=== PATIENT | male | born 1970 | race Caucasian/White ===

== ENCOUNTER 2025-07-02 17:04 | Inpatient (IN) | payer OTHER, SELFPAY ==
--- OUTSIDE RECORDS SUMMARY | 2024-06-16 17:30 | XMS_ITS ---
Author Organization [facility] Address [address] [id number] Care Team Providers Care Pump Stitcher Name Role Phone Yovani Nelson Primary Care Provider Unavailabl Jalen Mccloud Unavailable [phone] Migration, Provider Unavailable Unavailable REASON FOR VISIT Multum To Medispan Conversion Encounter Medications Medication SIG (Take, Route, Frequency, Duration) Notes Start Date End Date Status Disulfiram *Please review a nd pick correct strength-formulation from Medispan options. If intended option is not shown, discontinue and re-order from Quick Search* Unknown Sulfamethoxazole *Please review and pick correct strength-formulation from Medispan options. If intended option is not shown, discontinue and re-order from Quick Search* Unknown Encounters Encounter Location Date Provider Diagnosis [facility] [address] [id number] 06/16/2024 Provider Migration Plan Of Treatment No Information Progress Notes * Alec MAYADOB:[birth year] (54 yo M)Acc No.[id number]:06/16/2024 Patient: Alec Nichols Provider: :1970 A ge:53 Y S ex:Male Date:06/16/2024 Address:[address] [facility], [phone] Pcp:Yovani Nelson Subjective: * Chief Complaints: * M ultum To Medispan Conversion Encounter * Medications: U nknownSulfamethoxazole , Notes to Pharmacist: *Please review and pick correct strength-formulation from Medispan options. If intended option is not shown, discontinue and re-order from Quick Search*Disulfiram , Notes to Pharmacist: *Please review and pick correct strength-formulation from Medispan options. If intended option is not shown, discontinue and re-order from Quick Search*Unknown Sulfamethoxazole , Notes to Pharmacist: *Please review and pick correct strength-formulation from Medispan options. If intended option is not shown, discontinue and re-order from Quick Search*Unknown Disulfiram , Notes to Pharmacist: *Please review and pick correct strength-formulation from Medispan options. If intended option is not shown, discontinue and re-order from Quick Search* * Electronic signature of Prov ider Migration on 07/02/2025 at 06:45 PM EDT Sign off status: Pending * Provider: Date: 0 06/16/2024 Generated for Sunday barron/Nicole/Crispinitting on: 07/02/2025 06:45 PM EDT
--- OUTSIDE RECORDS SUMMARY | 2024-07-05 09:00 | XMS_ITS ---
Author Organization [facility], Address [address] [facility] [address] [place] [address] Care Team Providers Care Racecar Driver Name Role Phone Yovani Lee Primary Care Provider Mena Gloria Unavailable [phone] Yovani Lee Unavailable Unavailable ALLERGIES Allergen (clinical drug ingredient) Drug/Non Drug Allergy documented on EMR Reaction Allergy Type Onset Date Status Lobster, shrimp, crane helper b (uncoded) Unknown Allergy Active REASON FOR VISIT RIGHT SHOULDER PAIN SOCIAL HISTORY Tobacco Use: Social History Observation Description Date Details (start date - stop date) Former Smoker NA - NA Sex Assigned At : Social History Observation Description Sex Assigned At Unknown Smoking Question Answer Notes Do you smoke? Former smoker Additional Findings: Tobacco Non-User Current no n-smoker PROBLEMS Problem Type ICD Code Onset Dates Problem Status W/U Status Risk SNOMED Code Notes Problem Rotator cuff syndrome of right shoulder (M75.101) Active confirmed 263285050586383 VITAL SIGNS Height 5 ft 7 in in 07/05/2024 Weight 180 lbs 07/05/2024 BMI 28.19 kg/m2 07/05/2024 Encounters Encounter Location Date Provider Diagnosis [facility] [address] [place] [phone] 07/05/2024 Mena Stein Rotator cuff syndrome of right shoulder M75.101 ASSESSMENTS Encounter Date Diagnosis Assessment Notes Treatment Notes Treatment Clinical Notes Section Notes 07/05/2024 Rotator cuff syndrome of right shoulder (ICD-10 - M75.101) 07/05/2024 Other Patient Educated with: Anatomy of theShoulder.pd f (AnatomyoftheS houlder.pdf) Patient Educated with: Tennis Elbow.pdf (Tennis Elbow.pdf) Patient Educated with: Anatomy of theShoulder.pd f (AnatomyoftheS houlder.pdf) Patient Educated with: Tennis Elbow.pdf (Tennis Elbow.pdf) PLAN OF TREATMENT Treatment Notes Assessment Notes Other Patient Educated wit h: Anatomy of theShoulder.pdf (AnatomyoftheShoulder.pdf) Patient Educated with: Tennis Elbow.pdf (Tennis Elbow.pdf) Patient Educated with: Anatomy of theShoulder.pdf (AnatomyoftheShoulder.pdf) Patient Educated with: Tennis Elbow.pdf (Tennis Elbow.pdf) Next Appt Details Follow Up: schedule R should er MRI, Reason: Progress Notes * Examination Category Sub-Category Detail Notes Category Not es GENERAL EXAMINATION General appearance: Within normal limits Skin: Exam of upper extrem ities and lower extremeties are within normal limits Neurologic: grossly intact Orientation: Alert and Oriented x 3 (Time, Place, Person) Mood: Within normal limits Gait: Without significant limitation Vascular: Exam is grossly norm al History and Physical Notes * HPI (History of Present Illness) Category Sub-Category Detail Notes Category Not es New Problem DIAGNOSIS: Right shoulder rotator cuff syndrome. HISTORY: He comes in with about 2 months of severely increasing shoulder pain. He has had pain in the past. He underwent left shoulder rotator cuff repair and has been doing rotator cuff strengthening exercises for his right shoulder. He has also been taking anti-inflammatory medications. He has pain in the shoulder and arm. He has pain with certain shoulder motions. More recently he has developed a little bit of right scapular pain. He can have some pain which radiates down the right upper extremity into the ulnar aspect of the hand. It is associated with some numbness and tingling. He denies neck pain or stiffness. He does not give a history of an injury. PHYSICAL EXAMINATION: He has full motion of the cervical spine without pain. He has painful elevation of the right shoulder. He has pain and weakness with resisted supraspinatus strength testing. He has full shoulder rotation but pain with impingement testing. He has a negative Tinel at the cubital and carpal tunnel. He has symmetric reflexes in the upper extremities and no weakness or atrophy. DATA: X-rays of the right shoulder are unremarkable. ASSESSMENT AND PLAN: He has right shoulder pain. His exam reveals impingement and is suspicious for a rotator cuff tear. He has been doing physical therapy exercises given to him following left shoulder rotator cuff repair. He has been taking anti-inflammatory medications and has modified his activities. His symptoms are progressive. I have recommended MRI of the shoulder to evaluate the severity of his impingement and to rule out rotator cuff tear. THE PATIENT AND I DISCUSSED THEIR CONDITION COMPLETELY. TREATMENT OPTIONS AND ASSOCIATED RISKS AND BENEFITS WERE REVIEWED. ALL QUESTIONS WERE ANSWERED AND EXPLAINED TO THEIR SATISFACTION. DICTATED BY MENA STEIN M.D. DANIEL/tia
--- OUTSIDE RECORDS SUMMARY | 2024-07-05 10:50 | XMS_ITS ---
Author Organization [facility] Address [address] [address] Care Team Providers Care Minister Assistant Name Role Phone Yovani Lee Primary Care Provider Doroteo Gloria [phone] Yovani Lee Unavailable Unavailable REASON FOR VISIT MRI RIGHT SHOULDER Encounters Encounter Location Date Provider Diagnosis [facility] [address] [place] [address] [address] [place] [address] 07/05/2024 Doroteo Estrada PLAN OF TREATMENT No Information
[2025-07-02 17:15] VITALS: BP 143/63; PULSE 64; RESP 15; TEMP 37.1; O2SAT 99
[2025-07-02 17:40] VITALS: BMI 27.4
--- OUTSIDE RECORDS SUMMARY | 2025-07-02 18:45 | XMS_ITS | Clinical Summary ---
Author Organization [facility] Address [address] [place] [address] Care Team Providers Care Web Assistant Name Role Phone None Primary Care Provider Unavailabl e Allergies Active Allergy Reactions Criticality Noted Date Comments Crab Other (See Comments) High 06/11/2025 Throat tightness and GI upset. Lobster Other (See Comments) High 06/11/2025 Throat tightness and GI upset. Shrimp Other (See Comments) High 06/11/2025 Throat tightness and GI upset. 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 06/16/2025 EtOH dependence 06/12/2025 Shellfish allergy 06/12/2025 Alcohol use disorder 06/12/2025 Encounters Date Type Department Care Team Description 06/20/2025 Tel Enc [facility] [address] [place] [address] 2nd Floor - [phone] [place] [address] Radha Koo 06/12/2025 Plan of Care Documentation [facility] [address] [place] [address] 06/11/2025 6:29 PM EDT - 06/16/2025 5:47 PM EDT Hospital Encounter [facility] [address] [place] [address] Dominic Dukes MD Poluha-O'Neil, Joanna, MD Alcohol use disorder (Primary Dx); Alcohol dependence with alcohol-induced mood disorder (HCC); Shellfish allergy Discharge Disposition: Home w/ Health Services 06/11/2025 Travel from Last 3 Months Family History Medical History Relation Comments Hypertension Father Leukemia Mother Heart Disease FamHxNeg Relation Status Comments Father Mother Social History Tobacco Use Types Packs/Day Years Used Date Smoking Tobacco: Never Smokeless Tobacco: Never Tobacco Cessation:Counseling Given: No Comments:Not applicable Alcohol Use Standard Drinks/Week Comments Yes 0 (1 standard drink = 0.6 oz pur e alcohol) Sex and Gender Information Value Date Recorded Sex Assigned at Not on file Legal Sex Male 1:41 PM EDT Gender Identity Male 06/12/2025 10:40 AM EDT Sexual Orientation Straight 06/12/2025 10 :40 AM EDT Last Filed Vital Signs Vital Sign Reading Time Taken Comments Blood Pressure 123/79 06/16/2025 7:18 AM EDT Pulse 65 06/16/2025 7:18 AM EDT Temperature 36.1 C (97 F) 06/16/2025 7:18 AM EDT Respiratory Rate 18 06/14/2025 8:29 AM EDT Oxygen Saturation 100% 06/16/2025 7:18 AM EDT Inhaled Oxygen Concentration - - Weight 77.1 kg (170 lb) 06/11/2025 5:00 PM EDT Height 167.6 cm (5' 6 ) 06/11/2025 5:00 PM EDT Body Mass Index 27.44 06/11/2025 5:00 PM EDT Plan of Treatment Not on file Procedures Procedure Name Priority Date/Time Associated Diagnosis Comments HC LIPID PANEL Routine 06/12/2025 7:52 AM EDT HC HEMOGLOBIN A1C Routine 06/12/2025 7:5 2 AM EDT from Last 3 Months Results * (ABNORMAL) Lipid Panel (06/12/2025 7:52 AM EDT) Cholesterol 281(H) 0 - 239 mg/dL [facility] TRIGLYCERIDES 121 0 - 150 mg/dL [facility] HIGH DENSITY LIPOPROTEIN 116 40 - 60 mg/dL [facility] LOW DENSITY LIPOPROTEIN DIRECT 168 0 - 189 mg/dL [facility] 06/12/2025 7:52 AM EDT 06/12/2025 8:20 AM EDT us Maxine Fierro MD LABORATORY Final Res ult [facility] [address] [place] [address], * Hemoglobin A1c (06/12/2025 7:52 AM EDT) HEMOGLOBIN A1C 5.5 4.0 - 5.6 % [facility] Comment: Hemoglobin A1C Interpretive information 5.7 - 6.4 % Increased risk for diabetes; recommend lifestyle management > 6.4 % Diagnosis of diabetes; should have at least 2 elevated results for diagnosis of diabetes. > 8.0 % Action suggested < 7.0 % Goal of therapy for diabetics; higher targets may apply for some with specific comorbidities. ESTIMATED AVERAGE GLUCOSE 111 74 - 160 mg/dL [facility] 06/12/2025 7:52 AM EDT 06/12/2025 8:20 AM EDT us Maxine Fierro MD LABORATORY Final Res ult [id number] [place] [address], from Last 3 Months Insurance [facility] Care Teams Web Assistant Relationship Specialty Start Date End Date None PCP - General 06/17/25
--- OUTSIDE RECORDS SUMMARY | 2025-07-02 18:45 | XMS_ITS | Patient Health Record ---
Author Organization [facility], Address [address] [facility] [address] [place] [address] Care Team Providers Care Call Center Representative Name Role Phone Yovani Lee Primary Care Provider Emilia Estrada Doroteo Unavailable [phone] Yovani Lee Unavailable Unavailable ALLERGIES Allergen (clinical drug ingredient) Drug/Non Drug Allergy documented on EMR Reaction Allergy Type Onset Date Status Lobster, shrimp, hobbies and crafts sales representative b (uncoded) Unknown Allergy Active REASON FOR REFERRAL No Information SOCIAL HISTORY Tobacco Use: Social History Observation [...] W/U Status Risk SNOMED Code Notes Problem Synovial cyst of popliteal space [Musa], left knee (M71.22) Active confirmed 400385657772472 Problem Lateral epicondylitis, right elbow (M77.11) Active confirmed 587595196797869 Problem Nondisplaced fracture of neck of second metacarpal bone, right hand, initial encounter for closed fracture (S62.360A) Active confirmed 487970316 Problem Nondisplaced fracture of neck of second metacarpal bone, right hand, subsequent encounter for fracture with routine healing (S62.360D) Active confirmed 91076668 Problem Other fracture of second metacarpal bone, right hand, initial encounter for closed fracture (S62.390A) Active confirmed 307168100 Problem Rotator cuff syndrome of right shoulder (M75.101) Active confirmed 648092743204413 Problem Carpal tunnel syndrome, right (G56.01) Active confirmed 276966564086956 Problem Complex tear of medial meniscus of left knee as current injury, subsequent encounter (S83.232D) Active confirmed 353813096 Problem Left knee pain, unspecified chronicity (M25.562) Active confirmed 12831308 Problem Impingement syndrome of left shoulder (M75.42) Active confirmed 534430058339913 Problem Nontraumatic complete tear of left rotator cuff (M75.122) Active confirmed 5585870957418683 Problem Traumatic complete tear of left rotator cuff, subsequent encounter (S46.012D) Active confirmed 160219320 VITAL SIGNS Height 5 ft 7 in in 07/05/2024 Weight 180 lbs 07/05/2024 BMI 28.19 kg/m2 07/05/2024 Encounters Encounter Location Date Provider Diagnosis [place] [address] [facility] [address] [address] 07/05/2024 Doroteo Estrada Rotator cuff syndrome of right shoulder M75.101 [place] [address] [facility] [address] [address] 07/05/2024 Doroteo Estrada ASSESSMENTS Encounter Date Diagnosis Assessment Notes Treatment Notes Treatment Clinical Notes Section Notes 07/05/2024 Rotator cuff syndrome of right shoulder (ICD-10 - M75.101) 07/05/2024 Other Patient Educated with: Anatomy of theShoulder.pd f (AnatomyoftheS houlder.pdf) Patient Educated with: Tennis Elbow.pdf (Tennis Elbow.pdf) Patient Educated with: Anatomy of theShoulder.pd f (AnatomyoftheS houlder.pdf) Patient Educated with: Tennis Elbow.pdf (Tennis Elbow.pdf) PLAN OF TREATMENT No Information Insurance Providers Payer Name Payer Address Payer Phone Subscriber Number Group Number Insured Name Patient Relationship to Insured Coverage Start Date Coverage End Date [place] [place] [address] [address] [place] [address] [id number] NADEGE MAYA Self - patient is the insured MEDICAL (GENERAL) HISTORY Surgical History Surgery Date(Month/Year) left rotator cuff
--- OUTSIDE RECORDS SUMMARY | 2025-07-02 18:46 | XMS_ITS | Patient Health Record ---
Author Organization [facility] Address [address] [facility] [address] [place], [place] [id number] Care Team Providers Care Paper Twister Name Role Phone Leslie, Yovani Primary Care Provider Jalen Lara Unavailable [phone] Allergies No Known Allergies Reason For Referral No Information Medications Medication SIG (Take, Route, Fr equency, Duration) Notes Start Date End Date Status Disulfiram Not-Takin g Sulfamethoxazole Not -Taking Social History Tobacco Use: Social History Observation Description Date Details (start date - stop date) Never Smoker NA - NA Social History Social History Social Info Question Answer Notes Smoking status: Are you a: Never smoker Additional Findings: Tobacco Non-User Current no n-smoker Alcohol consumption: Did you have a drink contai catracho alcohol in the past year? No Interpretation Negative Problems Problem Type SNOMED Code ICD Code Onset Dates Problem Status W/U Status Risk Notes Problem Mass of neck (315086444) Neck mass (R22.1) Active confirmed Problem Mass of neck (611157836) Mass in neck (R22.1) Active confirmed Problem Cervical lymphadenopathy (005300073) Cervical lymphadenopathy (R59.0) Active confirmed Plan Of Treatment No Information Insurance Providers Payer Name Payer Address Payer Phone Subscriber Number Group Number Insured Name Patient Relationship to Insured Coverage Start Date Coverage End Date [facility] [facility] [address] [address] [place] [phone] [id number] Alec Lennon Self - patient is the insured Medical (General) History Medical History History ICD Code bronchitis seasonal allergies Surgical History Surgery Date(Month/Year) left knee repair left rotator cuff Excision Right Neck Mass 02/01/2023
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
--- NOTE | 2025-07-02 19:16 | PC.NURSE ---
Pt declined the flu vaccine.
--- NOTE | 2025-07-02 19:18 | PC.NURSE ---
Pt declined referral to speak to the addiction team in regards to his alcohol use.
[2025-07-02 20:00] VITALS: BP 141/78; PULSE 96; RESP 16; TEMP 36.6; O2SAT 99
[2025-07-03 08:00] VITALS: BP 136/82; PULSE 64; RESP 15; TEMP 36.8; O2SAT 96
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
[2025-07-03 08:39] LABS: Hemoglobin A1C 138.6484 umol/L; Total Hemoglobin (HGBA1C) 3953.2492 umol/L
[2025-07-03 08:46] LABS: Alanine Aminotransferase 33 U/L (0-40); Albumin Level 4.6 g/dL (3.5-5.0); Alkaline Phosphatase 65 U/L (39-117); Anion Gap 14 (12-20); Aspartate Amino Transferase 38 U/L (5-37); Blood Urea Nitrogen 17 mg/dL (9-16); Calcium 9.8 mg/dL (8.4-10.2); Carbon Dioxide 28 mmol/L (22-29); Chloride 102 mmol/L (96-108); Cholesterol 207 mg/dL (<200); Creatinine Clr Calc Pharmacy 94.9; Estimated Glomerular Filt Rate > 60; HDL Cholesterol 77 mg/dL (>40); Potassium 4.4 mmol/L (3.3-5.1); Sodium 140 mmol/L (135-145); Total Protein 7.5 g/dL (6.5-8.0); Triglycerides 99 mg/dL (<150)
[2025-07-03 09:02] LABS: Free T4 (Free Thyroxine) 0.99 ng/dL (0.71-1.85); Thyroid Stimulating Hormone 2.06 uIU/mL (0.32-4.0)
--- NOTE | 2025-07-03 09:22 | P.HPPS_ITS ---
HPI Date of Service: 07/03/25 Chief Complaint: unspecified depression Sources of Information: patient interviewed and chart reviewed HPI Subjective Notes: Aguiar Warning and 3 Day Narrative: 54-year-old male presents to [facility] ED yesterday for SI in the context of heavy drinking. He was transferred to [facility] behavioral health yesterday. On interview with his provider, patient notes that 2 days ago, he got drunk and texted the of his girlfriend's mother to come over to his residence to have a talk about suicide. He wanted to know if the of his girlfriend has experienced suicide and how he dealt or cope with it. He came over to the patient's home but patient does not recall their conversation. He was aware that the police arrived and he was brought to [facility] ED. He notes that drinking has been a problem for him for a very long time. He started drinking alcohol in 2009 and his use progressively increased. He drinks 8 beers and 4-5 nips daily, after work, from 15:30 until he falls asleep. He was section 12 for 5 days at [facility] late last month; he was drunk and texted a photo of a knife to his girlfriend with a note stating you will be better off without me. After his discharge from [facility], he has drank until he blacked out on 3 occasions, last incident being 2 days ago. In 2018, he was in alcohol rehab at [facility] and sober for 46 days. In 2020, he was in another rehab for alcochol, and was sober for 30 days. In 2022, he decided to stop drinking and was sober for 349 days. He has been on Antabuse which is very effective. Naltrexone is not effective. He denies history of Psychiatry illness. He denies anxiety or depression. He denies SI/HI/AH/VH. He is willing to be referred to addiction medicine. Current CIWA score 0/0/0/0. Patient seen at 1145 on 07/03/2025. Past Psychiatric History: IPLOC x1: Section 12 a [facility] x5 days in 05/2025 for SI Denies history of psychiatric illness Never been on psychotropic medication Medical Evaluation Reviewed: Yes [facility] Family History: Sister: MDD Social History: Divorce Has a girlfriend 1 son -lives with his mom Self-employed as a [employer] Denies legal issues Substance History: He started drinking alcohol in 2009 and his use progressively increased. He drinks 8 beers and 4-5 nips daily, after work, from 15:30 until he falls asleep. Takes 1 cannabis gummy for sleep, Denies tobacco use Trauma History: Denies Diagnostics Vital Signs (24Hr): Vital Signs - 24 hr 07/02/25 17:15 07/02/25 20:00 Temperature 98.8 F 97.8 F Pulse Rate 64 96 Respiratory Rate 15 16 Blood Pressure 143/63 H 141/78 H Pulse Oximetry 99 99 Oxygen Delivery Method Room Air Room Air BMI result Body Mass Index 27.4 Labs 07/03/25 08:07 Labs: Laboratory Results - last 48 hr 07/03/25 08:07 Sodium 140 Potassium 4.4 Chloride 102 Carbon Dioxide 28 Anion Gap 14 BUN 17 H Creatinine 0.88 Estim Creat Clear Calc 94.9 Estimated GFR > 60 Random Glucose 114 Estimat Average Glucose 108 Hemoglobin A1c % 5.4 Calcium 9.8 Total Bilirubin 0.8 AST 38 H ALT 33 Alkaline Phosphatase 65 Total Protein 7.5 Albumin 4.6 Triglycerides 99 Cholesterol 207 H LDL Cholesterol, Calc 111 H HDL Cholesterol 77 TSH 2.06 Free T4 0.99 Meds/Allergies Allergies Allergies Allergy/AdvReac Type Severity Reaction Status Date / Time crab Allergy Unknown Verified 07/02/25 17:42 lobster Allergy Unknown Verified 07/02/25 17:42 shrimp Allergy Unknown Verified 07/02/25 17:42 Mental Status Exam Mental Status Exam Narrative: Appearance: Casually dressed, adequate hygiene Behavior: Calm and cooperative throughout the interview. Eye contact is appropriate, and there are no signs of psychomotor agitation or retardation Speech: Normal volume and prosody Thought process: Logical and goal-directed Thought content: Future oriented no self-harming thoughts Mood: Euthymic Affect: Full, mood-congruent SI:denies HI:denies VH/AH:none Delusions: None Insight/judgment: Fair insight and judgment Memory/cog: Alert, oriented x 4. grossly intact to conversational testing Assessment & Plan Assessment & Plan (1) Alcohol use disorder: Status: Acute Code(s): F10.90 - Alcohol use, unspecified, uncomplicated Assessment and Plan: 54-year-old male presents to [facility] ED yesterday for SI in the context of heavy drinking. He was transferred to [facility] behavioral health yesterday. On interview with his provider, patient notes that 2 days ago, he got drunk and texted the of his girlfriend's mother to come over to his residence to have a talk about suicide. He wanted to know if the of his girlfriend has experienced suicide and how he dealt or cope with it. He came over to the patient's home but patient does not recall their conversation. He was aware that the police arrived and he was brought to [facility] ED. He notes that drinking has been a problem for him for a very long time. He started drinking alcohol in 2009 and his use progressively increased. He drinks 8 beers and 4-5 nips daily, after work, from 15:30 until he falls asleep. He was section 12 for 5 days at [facility] late last month; he was drunk and texted a photo of a knife to his girlfriend with a note stating you will be better off without me. After his discharge from [facility], he has drank until he blacked out on 3 occasions, last incident being 2 days ago. In 2018, he was in alcohol rehab at [facility] and sober for 46 days. In 2020, he was in another rehab for alcochol, and was sober for 30 days. In 2022, he decided to stop drinking and was sober for 349 days. He has been on Antabuse which is very effective. Naltrexone is not effective. He denies history of Psychiatry illness. He denies anxiety or depression. He denies SI/HI/AH/VH. He is willing to be referred to addiction medicine. Current CIWA score 0/0/0/0. Formulation/Clinical reasoning: Alcohol use disorder: Patient has history of chronic alcohol use disorder which is a trigger for his SI. He been to multiple alcohol rehab without complete sobriety. He is willing to address his alcohol use with our addiction team. Consult made to [facility] addiction medicine. Continue current treatment regimen. Plan Admit to . 3-day - 15 minutes check. Diagnostics as needed. Collateral contact. Continue remainder of regime. Encouraged full milieu. Discharge planning. (2) Suicide ideation: Status: Acute Code(s): R45.851 - Suicidal ideations Patient educated on: diagnosis, medication risk/benefits and therapeutic strategies Reason for continued inpatient stay Substantial Risk for: harm to self and rapid decompensation Statement Statement: I have reviewed the history and physical and performed a pertinent examination on my patient. No changes have occurred unless specified. If the History and Physical was not performed prior to admission, the Hospitalist's service will be consulted for completing the admission physical. Time Spent With Patient Time: Total time managing care of this patient today ____ minutes.
[2025-07-03] MEDS: Milk of Magnesia 30 ML ORAL.SUSP PO (19:17)
[2025-07-03 20:00] VITALS: BP 131/70; PULSE 70; RESP 18; TEMP 37.9; O2SAT 98
[2025-07-04 08:00] VITALS: BP 137/81; PULSE 71; RESP 16; TEMP 36.6; O2SAT 97
--- NOTE | 2025-07-04 10:15 | P.PNPSI_ITS ---
Subjective Subjective Date of Service: 07/04/25 Reason For Visit: unspecified depression Subjective Notes: 3 Day Healthcare Proxy: No Guardianship: No Medical Problems Affecting Mental Status: No Interim History: Pt reports he feels well. He denies SI,HI,AH,VH. Denies increase in depressive sx, He reports no sx of concern, met with journalists and other writers briefly and reports no issues to discuss. Medication Compliance: Yes Side effects from medications: No Attending Groups: Intermittent Review of Systems Acute medical concerns: No Medical Review of Systems: unchanged Review of Systems Review of Systems Denies Mental Status Exam Mental Status Exam Patient Appearance: Appropriate Patient Orientation: Person, Place, Time and Situation Patient Behavior: Talkative Mood Description: Blunted Affect Description: Blunted Patient Cognition Impaired: No Ability to Follow Directions: Good Speech Pattern: Spontaneous Speech Memory Description: Intact Hallucinations: None Delusions: Not Present Thought Process: Goal Oriented Thought Content: positive for Goal Oriented Judgement: Fair Diagnostics Vital Signs (24Hr): Vital Signs - 24 hr 07/03/25 20:00 Temperature 100.2 F Pulse Rate 70 Respiratory Rate 18 Blood Pressure 131/70 Pulse Oximetry 98 Oxygen Delivery Method Room Air BMI result Body Mass Index 27.4 Labs 07/03/25 08:07 Labs: Laboratory Results - last 48 hr 07/03/25 08:07 Sodium 140 Potassium 4.4 Chloride 102 Carbon Dioxide 28 Anion Gap 14 BUN 17 H Creatinine 0.88 Estim Creat Clear Calc 94.9 Estimated GFR > 60 Random Glucose 114 Estimat Average Glucose 108 Hemoglobin A1c % 5.4 Calcium 9.8 Total Bilirubin 0.8 AST 38 H ALT 33 Alkaline Phosphatase 65 Total Protein 7.5 Albumin 4.6 Triglycerides 99 Cholesterol 207 H LDL Cholesterol, Calc 111 H HDL Cholesterol 77 TSH 2.06 Free T4 0.99 Medications Medications Current Medications Acetaminophen (Acetaminophen 325 Mg Tablet) 650 mg PO Q6H PRN PRN Reason: Headache/Pain, Scale 1-10 Al Hydroxide/Mg Hydroxide (Magnesium Hydrox/Alum Hydrox 30 Ml Oral.Susp) 30 ml PO Q6H PRN PRN Reason: Heartburn/Nausea Hydroxyzine HCl (Hydroxyzine Hcl 25 Mg Tablet) 25 mg PO Q6H PRN PRN Reason: mild anxiety Last Admin: 07/03/25 22:18 Dose: 25 mg Lorazepam (Lorazepam 1 Mg Tablet) 1 mg PO Q2H PRN PRN Reason: CIWA 8-11 Last Admin: 07/03/25 22:18 Dose: 1 mg Lorazepam (Lorazepam 1 Mg Tablet) 2 mg PO Q2H PRN PRN Reason: CIWA 12-15 Magnesium Hydroxide (Milk Of Magnesia 30 Ml Oral.Susp) 30 ml PO DAILY PRN PRN Reason: Constipation Last Admin: 07/03/25 19:17 Dose: 30 ml Nicotine (Nicotine 21 Mg Patch.Td24) 21 mg TRANSDERMA DAILY PRN PRN Reason: nicotine craving Nicotine Polacrilex (Nicotine Polacrilex 2 Mg Gum) 2 mg BUCCAL Q2H PRN PRN Reason: Nicotine Cravings Olanzapine (Olanzapine 5 Mg Tablet) 5 mg PO BID PRN PRN Reason: agitation Last Admin: 07/03/25 22:18 Dose: 5 mg Thiamine HCl (Thiamine Hcl 100 Mg Tablet) 100 mg PO DAILY KVNG Last Admin: 07/04/25 08:44 Dose: 100 mg Trazodone HCl (Trazodone Hcl 50 Mg Tablet) 50 mg PO BEDTIME MRX1 PRN PRN Reason: Insomnia Last Admin: 07/03/25 22:19 Dose: 50 mg Allergies Allergies Allergy/AdvReac Type Severity Reaction Status Date / Time crab Allergy Unknown Verified 07/02/25 17:42 lobster Allergy Unknown Verified 07/02/25 17:42 shrimp Allergy Unknown Verified 07/02/25 17:42 Assessment & Plan Assessment & Plan (1) Alcohol use disorder: Status: Acute Code(s): F10.90 - Alcohol use, unspecified, uncomplicated Assessment and Plan: 54-year-old male presents to [facility] ED yesterday for SI in the context of heavy drinking. He was transferred to [facility] behavioral health yesterday. On interview with his provider, patient notes that 2 days ago, he got drunk and texted the of his girlfriend's mother to come over to his residence to have a talk about suicide. He wanted to know if the of his girlfriend has experienced suicide and how he dealt or cope with it. He came over to the patient's home but patient does not recall their conversation. He was aware that the police arrived and he was brought to [facility] ED. He notes that drinking has been a problem for him for a very long time. He started drinking alcohol in 2009 and his use progressively increased. He drinks 8 beers and 4-5 nips daily, after work, from 15:30 until he falls asleep. He was section 12 for 5 days at [facility] late last month; he was drunk and texted a photo of a knife to his girlfriend with a note stating you will be better off without me. After his discharge from [facility], he has drank until he blacked out on 3 occasions, last incident being 2 days ago. In 2018, he was in alcohol rehab at [facility] and sober for 46 days. In 2020, he was in another rehab for alcochol, and was sober for 30 days. In 2022, he decided to stop drinking and was sober for 349 days. He has been on Antabuse which is very effective. Naltrexone is not effective. He denies history of Psychiatry illness. He denies anxiety or depression. He denies SI/HI/AH/VH. He is willing to be referred to addiction medicine. Current CIWA score 0/0/0/0. 9/12: Continue tx Formulation/Clinical reasoning: Alcohol use disorder: Patient has history of chronic alcohol use disorder which is a trigger for his SI. He been to multiple alcohol rehab without complete sobriety. He is willing to address his alcohol use with our addiction team. Consult made [place] [facility] [place]. Continue current treatment regimen. Plan Admit to [facility]. 3-day - 15 minutes check. Diagnostics as needed. Collateral contact. Continue remainder of regime. Encouraged full milieu. Discharge planning. (2) Suicide ideation: Status: Acute Code(s): R45.851 - Suicidal ideations Reason for continued inpatient stay Substantial Risk for: rapid decompensation Time Spent With Patient Time: Total time managing care of this patient today ____ minutes.
[2025-07-04 20:00] VITALS: BP 129/88; PULSE 68; TEMP 36.9; O2SAT 99
--- NOTE | 2025-07-05 07:53 | HO.PSYCHPN ---
Subjective Subjective Date of Service: 07/05/25 Reason For Visit: unspecified depression Subjective Notes: 3 Day Healthcare Proxy: No Guardianship: No Medical Problems Affecting Mental Status: No Interim History: Medical record and nursing notes reviewed; case discussed during rounds with team/nursing staff, and met with patient for supportive therapy/psychoeducation, as well as medication management. patient slept well and good appetite. Compliant with meds. He opens to take Antibuse which seems the hospital does not carry. Ask patient if family can bring it in and we can re-start. Patient denies safety concerns. He is open for substance treatment program which his girlfriend is also helping him. Some open laceration on right hand which I ordered bacitracin ointment BID for. Medication Compliance: Yes Side effects from medications: No Attending Groups: Intermittent Review of Systems Acute medical concerns: No Medical Review of Systems: unchanged Review of Systems Review of Systems Denies Yes all other systems are reviewed and are negative Mental Status Exam Mental Status Exam Patient Appearance: Appropriate Patient Orientation: Person, Place, Time and Situation Patient Behavior: Talkative Mood Description: Blunted Affect Description: Blunted Patient Cognition Impaired: No Ability to Follow Directions: Good Speech Pattern: Spontaneous Speech Memory Description: Intact Hallucinations: None Delusions: Not Present Thought Process: Goal Oriented Thought Content: positive for Goal Oriented Judgement: Fair Diagnostics Vital Signs (24Hr): Vital Signs - 24 hr 07/04/25 08:00 07/04/25 20:00 Temperature 97.9 F 98.5 F Pulse Rate 71 68 Respiratory Rate 16 Blood Pressure 137/81 129/88 Pulse Oximetry 97 99 Oxygen Delivery Method Room Air Room Air BMI result Body Mass Index 27.4 Labs 07/03/25 08:07 Labs: Laboratory Results - last 48 hr 07/03/25 08:07 Sodium 140 Potassium 4.4 Chloride 102 Carbon Dioxide 28 Anion Gap 14 BUN 17 H Creatinine 0.88 Estim Creat Clear Calc 94.9 Estimated GFR > 60 Random Glucose 114 Estimat Average Glucose 108 Hemoglobin A1c % 5.4 Calcium 9.8 Total Bilirubin 0.8 AST 38 H ALT 33 Alkaline Phosphatase 65 Total Protein 7.5 Albumin 4.6 Triglycerides 99 Cholesterol 207 H LDL Cholesterol, Calc 111 H HDL Cholesterol 77 TSH 2.06 Free T4 0.99 Medications Medications Current Medications Acetaminophen (Acetaminophen 325 Mg Tablet) 650 mg PO Q6H PRN PRN Reason: Headache/Pain, Scale 1-10 Last Admin: 07/04/25 11:38 Dose: 650 mg Al Hydroxide/Mg Hydroxide (Magnesium Hydrox/Alum Hydrox 30 Ml Oral.Susp) 30 ml PO Q6H PRN PRN Reason: Heartburn/Nausea Cyclobenzaprine HCl (Cyclobenzaprine Hcl 5 Mg Tablet) 5 mg PO TID PRN PRN Reason: spasm, stiffness Last Admin: 07/04/25 19:08 Dose: 5 mg Hydroxyzine HCl (Hydroxyzine Hcl 25 Mg Tablet) 25 mg PO Q6H PRN PRN Reason: mild anxiety Last Admin: 07/04/25 22:40 Dose: 25 mg Lorazepam (Lorazepam 1 Mg Tablet) 1 mg PO Q2H PRN PRN Reason: CIWA 8-11 Last Admin: 07/03/25 22:18 Dose: 1 mg Lorazepam (Lorazepam 1 Mg Tablet) 2 mg PO Q2H PRN PRN Reason: CIWA 12-15 Magnesium Hydroxide (Milk Of Magnesia 30 Ml Oral.Susp) 30 ml PO DAILY PRN PRN Reason: Constipation Last Admin: 07/03/25 19:17 Dose: 30 ml Nicotine (Nicotine 21 Mg Patch.Td24) 21 mg TRANSDERMA DAILY PRN PRN Reason: nicotine craving Nicotine Polacrilex (Nicotine Polacrilex 2 Mg Gum) 2 mg BUCCAL Q2H PRN PRN Reason: Nicotine Cravings Olanzapine (Olanzapine 5 Mg Tablet) 5 mg PO BID PRN PRN Reason: agitation Last Admin: 07/04/25 22:40 Dose: 5 mg Thiamine HCl (Thiamine Hcl 100 Mg Tablet) 100 mg PO DAILY KVNG Last Admin: 07/04/25 08:44 Dose: 100 mg Trazodone HCl (Trazodone Hcl 50 Mg Tablet) 50 mg PO BEDTIME MRX1 PRN PRN Reason: Insomnia Last Admin: 07/04/25 22:40 Dose: 50 mg Allergies Allergies Allergy/AdvReac Type Severity Reaction Status Date / Time crab Allergy Unknown Verified 07/02/25 17:42 lobster Allergy Unknown Verified 07/02/25 17:42 shrimp Allergy Unknown Verified 07/02/25 17:42 Assessment & Plan Assessment & Plan (1) Alcohol use disorder: Status: Acute Code(s): F10.90 - Alcohol use, unspecified, uncomplicated Assessment and Plan: 54-year-old male presents to [facility] ED yesterday for SI in the context of heavy drinking. He was transferred to [facility] behavioral health yesterday. On interview with his provider, patient notes that 2 days ago, he got drunk and texted the of his girlfriend's mother to come over to his residence to have a talk about suicide. He wanted to know if the of his girlfriend has experienced suicide and how he dealt or cope with it. He came over to the patient's home but patient does not recall their conversation. He was aware that the police arrived and he was brought to [facility] ED. He notes that drinking has been a problem for him for a very long time. He started drinking alcohol in 2009 and his use progressively increased. He drinks 8 beers and 4-5 nips daily, after work, from 15:30 until he falls asleep. He was section 12 for 5 days at [facility] late last month; he was drunk and texted a photo of a knife to his girlfriend with a note stating you will be better off without me. After his discharge from [facility], he has drank until he blacked out on 3 occasions, last incident being 2 days ago. In 2018, he was in alcohol rehab at [facility] and sober for 46 days. In 2020, he was in another rehab for alcochol, and was sober for 30 days. In 2022, he decided to stop drinking and was sober for 349 days. He has been on Antabuse which is very effective. Naltrexone is not effective. He denies history of Psychiatry illness. He denies anxiety or depression. He denies SI/HI/AH/VH. He is willing to be referred to addiction medicine. Current CIWA score 0/0/0/0. /: Continue tx 07/05/25: patient slept well and good appetite. Compliant with meds. He opens to take Antibuse which seems the hospital does not carry. Ask patient if family can bring it in and we can re-start. Patient denies safety concerns. He is open for substance treatment program which his girlfriend is also helping him. Some open laceration on right hand which I ordered bacitracin ointment BID for. Continue with treatment plan. CIWA Ativan D/C'd. Do not score the past two days. No symptoms of W/D. Formulation/Clinical reasoning: Alcohol use disorder: Patient has history of chronic alcohol use disorder which is a trigger for his SI. He been to multiple alcohol rehab without complete sobriety. He is willing to address his alcohol use with our addiction team. Consult made to [facility] addiction medicine. Continue current treatment regimen. Plan Admit to . 3-day - 15 minutes check. Diagnostics as needed. Collateral contact. Continue remainder of regime. Encouraged full milieu. Discharge planning. (2) Suicide ideation: Status: Acute Code(s): R45.851 - Suicidal ideations Patient educated on: diagnosis, medication risk/benefits, substance abuse and therapeutic strategies Informed Consent: understands Reason for continued inpatient stay Substantial Risk for: med/psych decompensation Time Spent With Patient Time: Total time managing care of this patient today ____ minutes.
[2025-07-05 08:00] VITALS: BP 121/64; PULSE 53; RESP 18; TEMP 36.4; O2SAT 98
[2025-07-05 20:00] VITALS: BP 114/72; PULSE 91; TEMP 36.8; O2SAT 97
[2025-07-06 07:59] VITALS: BP 117/73; PULSE 60; RESP 18; TEMP 36.3; O2SAT 98
[2025-07-06 20:00] VITALS: BP 129/86; PULSE 80; RESP 16; TEMP 37.1; O2SAT 97
--- NOTE | 2025-07-06 21:38 | P.PNPSI_ITS ---
Subjective Subjective Date of Service: 07/06/25 Reason For Visit: unspecified depression Subjective Notes: 3 Day Healthcare Proxy: No Guardianship: No Medical Problems Affecting Mental Status: No Interim History: Medical record and nursing notes reviewed; case discussed during rounds with team/nursing staff, and met with patient for supportive therapy/psychoeducation, as well as medication management. Patient slept for 7 hours, compliant with medications, on 3 day notice. He is not sure if he wants to retract, and looking for further treatment program. Pacing at time, playing games with peers indication, no behavior issues. No safety concerns. Do not appear to be psychotic. Denies alcohol craving. Girlfriend can not bring Antabuse in. Medication Compliance: Yes Side effects from medications: No Attending Groups: Yes Review of Systems Acute medical concerns: No Medical Review of Systems: unchanged Review of Systems Review of Systems Denies Yes all other systems are reviewed and are negative Mental Status Exam Mental Status Exam Patient Appearance: Appropriate Patient Orientation: Person, Place, Time and Situation Patient Behavior: Talkative Mood Description: Blunted Affect Description: Blunted Patient Cognition Impaired: No Ability to Follow Directions: Good Speech Pattern: Spontaneous Speech Memory Description: Intact Hallucinations: None Delusions: Not Present Thought Process: Goal Oriented Thought Content: positive for Goal Oriented Judgement: Fair Diagnostics Vital Signs (24Hr): Vital Signs - 24 hr 07/06/25 07:59 07/06/25 20:00 Temperature 97.3 F 98.8 F Pulse Rate 60 80 Respiratory Rate 18 16 Blood Pressure 117/73 129/86 Pulse Oximetry 98 97 Oxygen Delivery Method Room Air Room Air BMI result Body Mass Index 27.4 Labs 07/03/25 08:07 Medications Medications Current Medications Acetaminophen (Acetaminophen 325 Mg Tablet) 650 mg PO Q6H PRN PRN Reason: Headache/Pain, Scale 1-10 Last Admin: 07/05/25 21:48 Dose: 650 mg Al Hydroxide/Mg Hydroxide (Magnesium Hydrox/Alum Hydrox 30 Ml Oral.Susp) 30 ml PO Q6H PRN PRN Reason: Heartburn/Nausea Bacitracin (Bacitracin Oint 14 Gm Tube) 1 appl TOPICAL BID KVNG; Protocol Last Admin: 07/06/25 08:39 Dose: 1 appl Cyclobenzaprine HCl (Cyclobenzaprine Hcl 5 Mg Tablet) 5 mg PO TID PRN PRN Reason: spasm, stiffness Last Admin: 07/06/25 13:38 Dose: 5 mg Hydroxyzine HCl (Hydroxyzine Hcl 25 Mg Tablet) 25 mg PO Q6H PRN PRN Reason: mild anxiety Last Admin: 07/05/25 15:35 Dose: 25 mg Magnesium Hydroxide (Milk Of Magnesia 30 Ml Oral.Susp) 30 ml PO DAILY PRN PRN Reason: Constipation Last Admin: 07/03/25 19:17 Dose: 30 ml Nicotine (Nicotine 21 Mg Patch.Td24) 21 mg TRANSDERMA DAILY PRN PRN Reason: nicotine craving Nicotine Polacrilex (Nicotine Polacrilex 2 Mg Gum) 2 mg BUCCAL Q2H PRN PRN Reason: Nicotine Cravings Olanzapine (Olanzapine 5 Mg Tablet) 5 mg PO BID PRN PRN Reason: agitation Last Admin: 07/05/25 23:04 Dose: 5 mg Thiamine HCl (Thiamine Hcl 100 Mg Tablet) 100 mg PO DAILY KVNG Last Admin: 07/06/25 08:39 Dose: 100 mg Trazodone HCl (Trazodone Hcl 50 Mg Tablet) 50 mg PO BEDTIME MRX1 PRN PRN Reason: Insomnia Last Admin: 07/05/25 23:04 Dose: 50 mg Allergies Allergies Allergy/AdvReac Type Severity Reaction Status Date / Time crab Allergy Unknown Verified 07/02/25 17:42 lobster Allergy Unknown Verified 07/02/25 17:42 shrimp Allergy Unknown Verified 07/02/25 17:42 Assessment & Plan Assessment & Plan (1) Alcohol use disorder: Status: Acute Code(s): F10.90 - Alcohol use, unspecified, uncomplicated Assessment and Plan: 54-year-old male presents to [facility] ED yesterday for SI in the context of heavy drinking. He was transferred to [facility] behavioral health yesterday. On interview with his provider, patient notes that 2 days ago, he got drunk and texted the of his girlfriend's mother to come over to his residence to have a talk about suicide. He wanted to know if the of his girlfriend has experienced suicide and how he dealt or cope with it. He came over to the patient's home but patient does not recall their conversation. He was aware that the police arrived and he was brought to [facility] ED. He notes that drinking has been a problem for him for a very long time. He started drinking alcohol in 2009 and his use progressively increased. He drinks 8 beers and 4-5 nips daily, after work, from 15:30 until he falls asleep. He was section 12 for 5 days at [facility] late last month; he was drunk and texted a photo of a knife to his girlfriend with a note stating you will be better off without me. After his discharge from [facility], he has drank until he blacked out on 3 occasions, last incident being 2 days ago. In 2018, he was in alcohol rehab at [facility] and sober for 46 days. In 2020, he was in another rehab for alcochol, and was sober for 30 days. In 2022, he decided to stop drinking and was sober for 349 days. He has been on Antabuse which is very effective. Naltrexone is not effective. He denies history of Psychiatry illness. He denies anxiety or depression. He denies SI/HI/AH/VH. He is willing to be referred to addiction medicine. Current CIWA score 0/0/0/0. 07/04: Continue tx 07/05/25: patient slept well and good appetite. Compliant with meds. He opens to take Antibuse which seems the hospital does not carry. Ask patient if family can bring it in and we can re-start. Patient denies safety concerns. He is open for substance treatment program which his girlfriend is also helping him. Some open laceration on right hand which I ordered bacitracin ointment BID for. Continue with treatment plan. CIWA Ativan D/C'd. Do not score the past two days. No symptoms of W/D. 07/06/25: Patient slept for 7 hours, compliant with medications- Only Supplement. on 3 day notice. He is not sure if he wants to retract, and looking for further treatment program. Pacing at time, playing games with peers indication, no behavior issues. No safety concerns. Do not appear to be psychotic. Denies alcohol craving. Girlfriend can not bring Antabuse in. Formulation/Clinical reasoning: Alcohol use disorder: Patient has history of chronic alcohol use disorder which is a trigger for his SI. He been to multiple alcohol rehab without complete sobriety. He is willing to address his alcohol use with our addiction team. Consult made to [facility] addiction medicine. Continue current treatment regimen. Plan Admit to [facility]. 3-day - 15 minutes check. Diagnostics as needed. Collateral contact. Continue remainder of regime. Encouraged full milieu. Discharge planning. (2) Suicide ideation: Status: Acute Code(s): R45.851 - Suicidal ideations Patient educated on: medication risk/benefits, substance abuse and therapeutic strategies Informed Consent: understands Reason for continued inpatient stay Substantial Risk for: med/psych decompensation Time Spent With Patient Time: Total time managing care of this patient today ____ minutes.
[2025-07-07 08:00] VITALS: BP 104/66; PULSE 57; TEMP 36.6; O2SAT 98
--- NOTE | 2025-07-07 11:31 | P.DS_ITS ---
DS: Providers Provider Date of Service: 07/07/25 Date of admission: 07/02/25 17:04 Date of discharge: 07/07/25 Primary care physician: Unknown Physician Attending physician on admission: Roselyn Caballero Consults: 07/02/25 17:42 Consult to Hospitalist Routine Comment: Consulting Provider: [facility] Hospitalists Reason For Exam: New external admit H+P Attending physician on discharge: Tracey Schrader DS: Diagnosis Discharge Diagnosis (1) Alcohol use disorder: Status: Acute (2) Suicide ideation: Status: Acute DS: Medications Discharge Medications Home Medications: Previous Rx's ?Medication ?Instructions ?Recorded cyclobenzaprine 5 mg tablet 5 mg PO TID PRN spasm, sti ffness 07/07/25 #30 tabs hydroxyzine HCl 25 mg tablet 25 mg PO BID PRN mild anx iety #60 07/07/25 tabs trazodone 50 mg tablet 50 mg PO BEDTIME PRN Insomni a #30 07/07/25 tabs Mental Status Exam Mental Status Exam Narrative: Patient presents well-groomed, casually dressed. Affect is euthymic with full range. Speech is clear and coherent. Thought process is linear and logical. Thought content is appropriate and relevant. Patient denies suicidal or homicidal ideation intent or plan. No overt psychotic symptoms elicited. Insight is good. Judgment is good. Data Data Completed and Pending Completed studies during hospitalization [Text1]: 07/03/25 08:07 Sodium 140 Potassium 4.4 Chloride 102 Carbon Dioxide 28 Anion Gap 14 BUN 17 H Creatinine 0.88 Estim Creat Clear Calc 94.9 Estimated GFR > 60 Random Glucose 114 Estimat Average Glucose 108 Hemoglobin A1c % 5.4 Calcium 9.8 Total Bilirubin 0.8 AST 38 H ALT 33 Alkaline Phosphatase 65 Total Protein 7.5 Albumin 4.6 Triglycerides 99 Cholesterol 207 H LDL Cholesterol, Calc 111 H HDL Cholesterol 77 TSH 2.06 Free T4 0.99 DS: Summary Hospital Course Hospital Course: 54-year-old male presents to [facility] ED yesterday for SI in the context of heavy drinking. He was transferred to [facility] behavioral health yesterday. On interview with his provider, patient notes that 2 days ago, he got drunk and texted the of his girlfriend's mother to come over to his residence to have a talk about suicide. He wanted to know if the of his girlfriend has experienced suicide and how he dealt or cope with it. He came over to the patient's home but patient does not recall their conversation. He was aware that the police arrived and he was brought to [facility] ED. He notes that drinking has been a problem for him for a very long time. He started drinking alcohol in 2009 and his use progressively increased. He drinks 8 beers and 4-5 nips daily, after work, from 15:30 until he falls asleep. He was section 12 for 5 days at [facility] late last month; he was drunk and texted a photo of a knife to his girlfriend with a note stating you will be better off without me. After his discharge from [facility], he has drank until he blacked out on 3 occasions, last incident being 2 days ago. In 2018, he was in alcohol rehab at [facility] and sober for 46 days. In 2020, he was in another rehab for alcochol, and was sober for 30 days. In 2022, he decided to stop drinking and was sober for 349 days. He has been on Antabuse which is very effective. Naltrexone is not effective. He denies history of Psychiatry illness. He denies anxiety or depression. He denies SI/HI/AH/VH. He is willing to be referred to addiction medicine. Current CIWA score 0/0/0/0. Formulation/Clinical reasoning: Alcohol use disorder: Patient has history of chronic alcohol use disorder which is a trigger for his SI. He been to multiple alcohol rehab without complete sobriety. He is willing to address his alcohol use with our addiction team. Consult made to [facility] addiction medicine. Continue current treatment regimen. 07/04: Continue tx 07/05/25: patient slept well and good appetite. Compliant with meds. He opens to take Antibuse which seems the hospital does not carry. Ask patient if family can bring it in and we can re-start. Patient denies safety concerns. He is open for substance treatment program which his girlfriend is also helping him. Some open laceration on right hand which I ordered bacitracin ointment BID for. Continue with treatment plan. CIWA Ativan D/C'd. Do not score the past two days. No symptoms of W/D. 07/06/25: Patient slept for 7 hours, compliant with medications- Only Supplement. on 3 day notice. He is not sure if he wants to retract, and looking for further treatment program. Pacing at time, playing games with peers indication, no behavior issues. No safety concerns. Do not appear to be psychotic. Denies alcohol craving. Girlfriend can not bring Antabuse in. 07/07/25: Patient accepted at [facility] for substance use- alcohol use. Patient willingly to attempted to program for sobriety. Denies safety concerns. Medication sent to preferred pharmacy-per [facility] request. Patient said the girlfriend probably can bring Antabuse for him to the to the program Time spent discussing smoking cessation with patient: 3 to 10 minutes Status at Discharge Cognitive/behavioral status at discharge: CONDITION ON DISCHARGE: CURRENT STATUS IT RELATES TO ADMISSION CRITERIA: Stable, improved. Improvements in depression, anxiety, and suicidal ideation. Improvements in sleep, energy, and appetite. and no hallucination or paranoia/delusional thought. Functional status at discharge: independent ambulation Overall status at discharge: patient is back to baseline Time Spent with Patient Time attestation: Total time managing care of this patient today ____ minutes. Time spent: Greater than 30 minutes Discharge Plan Discharge Anticipated Discharge Date/Time: 07/07/25 11:24 Patient Disposition: Xfer Inpatient Rehab Fac Discharge Diagnosis: Alcohol use disorder Referrals: [facility]: [facility] [Other] - 07/07/25 1:00 pm Referral Note: Patient accepted for placement at [facility] for substance use treatment program. Physician,Unknown J [Primary Care Provider, Medical] - 1 Week Discharge Medications: New trazodone 50 mg Tablet 50 mg PO BEDTIME PRN (Reason: Insomnia) Qty: 30 0RF hydroxyzine HCl 25 mg Tablet 25 mg PO BID PRN (Reason: mild anxiety) Qty: 60 0RF cyclobenzaprine 5 mg Tablet 5 mg PO TID PRN (Reason: spasm, stiffness) Qty: 30 0RF Discharge Orders: Discharge Order (Routine); Ordered 07/07/25 Ordered By: Tracey Schrader Diet: Regular diet Activity on Discharge: No Restrictions Stand Alone Forms: Patient Portal Discharge page, Community Support Print Language: Serbian Care Plan Goals: Maintain mood and safe behaviors Take medications as prescribed Continue to pursue sobriety Practice coping skills Continue with outpatient providers and reach out to them as needed Health Concerns: Mood stability and behaviors Sobriety Plan of Treatment: Follow up with your PCP, psychiatric provider and other outpatient providers regarding above concerns Take medications as prescribed Assessment: Assessment: Risk assessment at time of discharge: Patient was interviewed prior to discharge and found to be fully oriented and without any SI or HI. Patient has improved insight and judgment and wants to continue treatment. Patient is not in imminent risk of harm to self or others and has a safety plan that includes presenting to the closest ER or calling 911 if feeling unsafe. Patient has been observed closely by nursing and unit staff throughout admission; patient has not engaged in any behaviors that suggest dangerousness to self or others and has demonstrated appropriate behaviors and impulse control Discharge Date/Time: 07/07/25 14:00
== END 2025-07-07 14:00 | DRG 754 ==
PROVIDERS: Nurse Practitioner Psychiatric/Mental Health; Admitting Provider Psychiatry & Neurology Psychiatry; Visit Provider Psychiatry & Neurology Psychiatry
DX: F32.A Depression, unspecified (principal); R45.851 Suicidal ideations; F10.10 Alcohol abuse, uncomplicated; Z71.41 Alcohol abuse counseling and surveillance of alcoholic; Z79.899 Other long term (current) drug therapy
CPT/HCPCS: 36415; 80053; 80061; 83036; 84439; 84443

== ENCOUNTER → 2025-07-02 17:04 | Outpatient (BNV) | payer OTHER, SELFPAY | PROVIDERS: Admitting Provider Psychiatry & Neurology Psychiatry; Visit Provider Nurse Practitioner Family | DX: F10.10 Alcohol abuse, uncomplicated (principal) | CPT/HCPCS: 99221 ==

== ENCOUNTER → 2025-07-02 17:04 | Outpatient (BNV) | payer OTHER, SELFPAY | PROVIDERS: Admitting Provider Psychiatry & Neurology Psychiatry; Visit Provider Clinical Nurse Specialist Psychiatric/Mental Health, Adult | DX: F10.90 Alcohol use, unspecified, uncomplicated (principal); R45.851 Suicidal ideations | CPT/HCPCS: 90792; 99231; 99232; 99239 ==